=== PATIENT | female | born 1995 | race Caucasian/White ===

== ENCOUNTER 2023-03-18 18:23 | Emergency (ER) | payer MEDICAID, OTHER ==
[~2023-03-18] VITALS: Ht 149.9 cm; Wt 59.0 kg
[~2023-03-18 18:23] MED LIST: IBUP-1953 PO
[2023-03-18] MEDS ORDERED: IV NS 0.9% 1,000 ML BAG IV ONE (19:30)
[2023-03-18] MEDS ORDERED: diphenhydrAMINE HCL 50 MG/ML VIAL IV ONE (19:30)
[2023-03-18] MEDS ORDERED: METOCLOPRAMIDE HCL 10 MG/2 ML VIAL IV ONE (19:30)
[2023-03-18] MEDS ORDERED: SUMATRIPTAN SUCCINATE 6 MG/0.5 ML VIAL SQ ONE ×2 (19:30→19:31)
[2023-03-18] MEDS ORDERED: METOCLOPRAMIDE HCL 10 MG/2 ML VIAL ONE (19:31)
[2023-03-18] MEDS ORDERED: diphenhydrAMINE HCL 50 MG/ML VIAL ONE (19:31)
[2023-03-18] MEDS ORDERED: SUMA100T PO (21:40)
[2023-03-18] MEDS ORDERED: METO-295 PO (21:40)
[2023-03-18] MEDS ORDERED: KETO10TA2 PO (21:40)
[2023-03-18 21:55] VITALS: BP 105/75; TEMP 97.8; O2SAT 97
== END 2023-03-18 21:54 | disposition home or self-care (01) ==
LOC: ER 18:24
DX: R51.9 Headache, unspecified (principal); Z88.8 Allergy status to other drugs, medicaments and biological substances
CPT/HCPCS: 99285; 96374; 70450; 96361; 96375; 96372; J1200; J3030; J2765; J7030